=== PATIENT | female | born 1960 | race African-American/Black ===

== ENCOUNTER 2019-08-25 05:33 | Inpatient (IN) | payer BC, OTHER ==
[2019-08-10 09:51] LABS: HEMATOCRIT 37.3 % (37.0-47.0); HEMOGLOBIN 12.2 gm/dL (12.0-15.0); MCH 28.1 pg (26.0-34.0); MCHC 32.7 g/dL (28.0-37.0); MCV 86.1 fL (80.0-100.0); RBC 4.33 mil/uL (4.20-5.00); RDW 14.3 % (10.5-14.5); WBC 3.4 thou/uL (4.0-11.0)
[2019-08-10 09:58] LABS: URINE BILIRUBIN NEGATIVE (Negative); URINE BLOOD NEGATIVE (Negative); URINE CLARITY CLEAR; URINE COLOR YELLOW; URINE GLUCOSE-RANDOM* NEGATIVE (Negative); URINE KETONES NEGATIVE (Negative); URINE LEUKOCYTES-REFLEX TRACE (Negative); URINE NITRITE-REFLEX NEGATIVE (Negative); URINE PROTEIN (DIPSTICK) NEGATIVE (Negative); URINE UROBILINOGEN 0.2 E.U./dl (0.2-1.0)
[2019-08-10 10:04] LABS: PROTIME 10.5 Seconds (9.3-11.4)
[2019-08-10 10:06] LABS: ALBUMIN 4.2 g/dL (3.4-5.0); CALCIUM 9.9 mg/dL (8.5-10.1); CREATININE 0.9 mg/dL (0.6-1.0); POTASSIUM 4.1 mmol/L (3.5-5.1)
--- NOTE | 2019-08-11 08:38 | EKG ---
[address] [place] [address] ELECTROCARDIOGRAM REPORT Name: ТАТЬЯНА WINTER Room #: PRE IN [facility]#: [id number] Admission: Attend Phys: Chace Orantes MD Discharge: Date of : 60 Report #: [id number] THIS REPORT FOR: //name// [facility] Test Date: 2019-08-10 Test Time: 09:47:25 Pat Name: ТАТЬЯНА COOK Department: Room: Gender: F [employer] Investigator: [facility] : 1960 Requested By: Chace Orantes Order Number: [id number] MD: Oseas Brooks Measurements Intervals [place] Rate: 60 P: 11 CO: 174 QRS: 28 QRSD: 87 T: 8 QT: 405 QTc: 405 Interpretive Statements Sinus rhythm Normal tracing No previous ECG available for comparison Electronically Signed On 08-11-2019 8:37:58 CDT by Oseas Brooks [email or web address] <ELECTRONICALLY SIGNED> By: Oseas Brooks MD, [facility] 08/11/19 0837 0947 0947 Oseas Brooks MD, FACC /EPI
[2019-08-25] VITALS (9 sets, daily range): BP systolic 111–129; BP diastolic 48–75
[~2019-08-25] VITALS: Ht 160 cm; Wt 64.9 kg
[~2019-08-25 05:33] MED LIST: MULTIVITAMINS1 EAC7 PO; NAPROSYN500 MG PO; NORCO 5-325 TA1 EAC1 PO; NORVASC5 MG PO
--- NOTE | 2019-08-25 10:31 | O ---
[facility] [place] [address] OPERATIVE REPORT Name: ТАТЬЯНА WINTER Room #: 150-1 ADM IN M.R.#: [id number] Admission: 08/25/19 Attend Phys: Chace Orantes MD Discharge: Date of : 60 Report #: [id number] THIS REPORT FOR: //name// CC: Chace Orantse [facility] Physician staff DATE OF SERVICE: 08/25/2019 PREOPERATIVE DIAGNOSIS: End-stage degenerative arthritis, left hip. POSTOPERATIVE DIAGNOSIS: End-stage degenerative arthritis, left hip. PROCEDURE: Left total hip arthroplasty. 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 Clinical exam and x-rays confirm severe end-stage degenerative arthritis with complete loss of joint space and moderate deformity of the femoral head. We have discussed treatment options and she has elected to go ahead with total hip replacement. DESCRIPTION OF PROCEDURE: The patient was taken to the operating room where she was placed under general anesthesia. Prophylactic intravenous antibiotics were administered. She was turned to the right lateral decubitus position. The left hip, thigh and leg were meticulously prepped and draped. A slightly curving posterolateral skin incision was made centered over the greater trochanter. This was carried through fascia exposing the posterior aspect of the hip joint. The short external rotators were taken down and preserved and tagged with several #1 Tevdek sutures. The hip was dislocated posteriorly. Marked degenerative change on both the femoral head and acetabulum was noted. A femoral neck osteotomy was performed and the canal was opened with reamers and hand broaches. The Ramsey and Nephew hip system was utilized. The femur seemed best suited for a size 13 Synergy porous stem. The trial stem was removed and attention directed to the acetabulum. The acetabulum was well exposed and then sequentially reamed, gradually advancing to a 50 mm reamer. The Ramsey and Nephew size 50 three-hole hemispherical StikTite shell was then inserted. This was placed in alignment with her true acetabulum positioned this in about 45 degrees off of vertical and 20 degrees of anteversion. It seated nicely and appeared to be secure. Two screws were placed through the apex holes with good purchase on periacetabular bone. A polyethylene liner was then inserted using the 50 mm outside diameter and a 32 mm inside diameter polyethylene shell. The 20-degree elevated garcia was placed in about the 10 o'clock posterior position. It snapped into place and seated nicely and appeared to be secure. A trial reduction was then performed with a size 13 femoral component and the hip fit [address] [address] OPERATIVE REPORT Name: JAZZ COMEREYТАТЬЯНА Room #: 150-1 [facility] IN M.R.#: [id number] Admission: 08/25/19 Attend Phys: Chace Orantes MD Discharge: Date of : 60 Report #: [id number] nicely when using a minus 3 mm neck length. This resulted in good alignment, range of motion, stability and leg length. The trial femoral stem was removed and the permanent Ramsey and Nephew Synergy porous size 13 stem was inserted. This was placed in about 15 degrees of anteversion. It seated nicely and appeared to be secure. The size 32 head with a minus 3 mm neck length using the Oxinium head style was selected. This was impacted onto the Carrillo taper. Hip was reduced. Alignment, range of motion, stability and leg length were assessed and felt to be satisfactory. The capsule and short external rotators were then repaired back to bone using the Tevdek sutures passed through small drill holes in the greater trochanter. A single Hemovac was left in the wound exiting through a separate stab incision. The fascia was then closed with multiple #1 Vicryl sutures. The subcutaneous tissues were closed with 0 Monocryl. The skin was closed with skin sharon. A sterile dressing was applied. The patient was awakened and returned to the recovery room in good condition. <ELECTRONICALLY SIGNED> By: Chace Orantes MD 08/25/19 1031 0934 1027 Chace Orantes MD /nt
--- NOTE | 2019-08-25 20:10 | NUR ---
Pt came from PACU approx 1300. A&o x4. Dressing on lt hip clean and intact. Hemocav drain in place. JOSIAH hose and SCD in place. Worked with PT. Able to void in toilet with 1x assist and walker+gait belt. Pain controlled with prn pain meds. Dr called to add anti-emetic med on emar. Able tolerate food. Advanced diet to regular. Call light within reach. Fall precautions in place.
--- NOTE | 2019-08-26 02:27 | NUR ---
PT C/O PAIN ON HER L HIP,MANAGED WITH MED.PT WAS ON 3L/NC AT START OF SHIFT,PT WEANED OFF NOW,O2 SAT STABLE ON RA.DRSG ON HER L HIP C/D/I WITH ROHITH AND HEMOVAC IN PLACE.PT REFUSED TO USE THE ABDUCTOR PILLOW IN HER ROOM,EDUCATION GIVEN.SCD AND JOSIAH HOSE IN PLACE ON HER BLE.STOOL SOFTNER ADMINISTERED PER PT'S REQUEST.PT REF TO GET UP TO GO TO BR,PREFERRED BEDPAN,EDUCATION GIVEN ON IMPORTANCE OF EARLY AMBULATION POST OP.IS Q1 WHILE AWAKE.IVF AND IV ABX ADMINISTERED ORDERED.FAMILY HERE AT START OF SHIFT.FALL PRECAUTIONS IN PLACE,CALL LIGHT WITHIN REACH.
[2019-08-26 04:30] VITALS: BP 107/60
[2019-08-26 05:02] LABS: HEMATOCRIT 27.9 % (37.0-47.0); HEMOGLOBIN 9.1 gm/dL (12.0-15.0); MCH 28.6 pg (26.0-34.0); MCHC 32.6 g/dL (28.0-37.0); MCV 87.9 fL (80.0-100.0); RBC 3.18 mil/uL (4.20-5.00); WBC 7.4 thou/uL (4.0-11.0)
[2019-08-26 07:12] VITALS: BP 124/67
--- NOTE | 2019-08-26 12:24 | NUR ---
ASSESSMENT-PT LIVES IN A [place] ALONE. SHE WALKS ON HER OWN AND DOES HER OWN ADLS. PT WAS DRIVING PRIOR TO ADMISSION. PT HAS 3 DTRS THAT ARE CLOSE-BY.PT HAS A TUB/SHOWER AND SHE WAS INSTRUCTED ON WHERE TO GET A TRANSFER BENCH IF NEEDED. PT HAS HER FOLLOW-UP APPTS ARRANGED WITH DR DOYLE ALREADY. PT SAYS SHE WAS TOLD BY DR DOYLE THAT LONG SHE IS CLEARED BY PHY TX HERE SHE WOULD NOT NEED TO GO TO OUTPT THERAPY. PT NEEDS A ROLLER WALKER FOR HOME. OFFERED OPTIONS AND SHE CHOSE [employer]. CONTACTED [employer] TO ISSUE HER A ROLLER WALKER AND THIS WAS DONE. PT VOICES NO OTHER DC NEEDS AT THIS TIME. FOLLOWING.
[2019-08-26 15:21] VITALS: BP 121/67
--- NOTE | 2019-08-26 18:36 | NUR ---
PT PROGRESSING WELL. AMBULATING THE HALLS USING WALKER. UP TO THE CHAIR FOR SEVERAL HOURS. EATING AND DRINKING WELL. MEDS FOR PAIN. PT PLANNING ON DC TOMORROW.
[2019-08-26 20:00] VITALS: BP 117/66
--- NOTE | 2019-08-27 01:07 | NUR ---
PT C/O PAIN,MANAGED WITH MED.PER REPORT PT WAS UP TO THE BR WITH PT ALL DAY BUT SHE REFUSED TO GET UP THSI SHIFT SHE SATED THAT SHE WILL USE THE BEDPAN INSTEAD.JOSIAH MARTINEZ AND SCD'S TO HER BLE.HEMOVAC REMOVED AT SHIFT CHANGE BY AM NURSE.PT SLEEPING ON HER BED AT THIS TIME.FALL PRECAUTIONS IN PLACE,CALL LIGHT WITHIN REACH.
[2019-08-27 03:15] VITALS: BP 116/59
[2019-08-27 05:10] LABS: HEMATOCRIT 26.2 % (37.0-47.0); HEMOGLOBIN 8.8 gm/dL (12.0-15.0); MCH 28.9 pg (26.0-34.0); MCHC 33.5 g/dL (28.0-37.0); MCV 86.2 fL (80.0-100.0); RBC 3.04 mil/uL (4.20-5.00); RDW 14.1 % (10.5-14.5); WBC 7.4 thou/uL (4.0-11.0)
[2019-08-27 07:45] VITALS: BP 114/63
[2019-08-27 10:16] VITALS: BP 114/63
--- NOTE | 2019-08-27 11:14 | NUR ---
Assumed pt care at 7am.Pt in and out of bed for activities.Assessment completed.vss.Pt was very excited about going home today after breakfast. Am meds given with breakfast and well tolerated.Dr Raza here,dc order noted.[place] compile and reviewed with pt.Saline lock dc'd.pain med given per pt request.Pt will dc home this morning probably by noon.Will continue to monitor.
== END 2019-08-27 13:05 | disposition home or self-care (01) | DRG 470 ==
LOC: TBA 05:33 → PRE 09:00 → 4E 11:25 → PRE 11:27 → 4E 08-27 13:05
PROVIDERS: ADMIT Orthopaedic Surgery
PROC: 0SRB06Z Replacement of Left Hip Joint with Oxidized Zirconium on Polyethylene Synthetic Substitute, Open Approach (ICD-10-PCS; principal; 2019-08-25)
DX: M16.12 Unilateral primary osteoarthritis, left hip (principal); I10 Essential (primary) hypertension; Z79.899 Other long term (current) drug therapy; Z88.6 Allergy status to analgesic agent; Z88.2 Allergy status to sulfonamides
CPT/HCPCS: 10783; 50010; 50101; 50382; 50414; 51412; 53000; 53368; 56521; 56525; 56527; 57095; 57103; 62110; 62900; 70005